=== PATIENT | female | born 1985 | race Native Hawaiian/Other Pacific Islander ===

== ENCOUNTER 2020-02-22 22:14 | Emergency (ER) | payer OTHER ==
[~2020-02-22] VITALS: Ht 170.2 cm; Wt 74.8 kg
[2020-02-22 22:40] LABS: PLATELET COUNT 368 K/uL (152-353)
[2020-02-22 22:51] LABS: POTASSIUM 3.9 mmol/L (3.6-5.2)
[2020-02-23 02:25] VITALS: BP 136/83; TEMP 98.2
== END 2020-02-23 02:25 | disposition home or self-care (01) ==
LOC: ED 22:14
PROVIDERS: Hospitalist
DX: A59.01 Trichomonal vulvovaginitis (principal); K29.60 Other gastritis without bleeding; R11.2 Nausea with vomiting, unspecified; K59.09 Other constipation
CPT/HCPCS: 80053; 80320; 81000; 81025; 82150; 83690; 84702; 85027; 96360; 96365; 96375; 99284; J0696; J1885; J2405; Q9963

== ENCOUNTER 2020-08-22 11:22 | Emergency (ER) | payer OTHER ==
[~2020-08-22] VITALS: Ht 170.2 cm; Wt 65.8 kg
[2020-08-22 11:30] VITALS: TEMP 97.7
[2020-08-22 12:25] VITALS: BP 126/74
== END 2020-08-22 12:27 | disposition home or self-care (01) ==
LOC: ED 11:22
DX: J06.9 Acute upper respiratory infection, unspecified (principal); J40 Bronchitis, not specified as acute or chronic; F17.210 Nicotine dependence, cigarettes, uncomplicated; Z20.822 Contact with and (suspected) exposure to COVID-19
CPT/HCPCS: 87635; 87651; 99283; U0003

== ENCOUNTER 2020-09-04 03:00 | Emergency (ER) | payer OTHER ==
[~2020-09-04] VITALS: Ht 170.2 cm; Wt 65.8 kg
[2020-09-04 03:38] LABS: PLATELET COUNT 422 K/uL (152-353)
[2020-09-04 03:46] LABS: POTASSIUM 3.5 mmol/L (3.6-5.2); SODIUM 140 mmol/L (136-145)
[2020-09-04 05:20] VITALS: BP 136/88; TEMP 97.8
== END 2020-09-04 05:28 | disposition home or self-care (01) ==
LOC: ED 03:00
PROVIDERS: Family Medicine
DX: K29.60 Other gastritis without bleeding (principal); R07.89 Other chest pain
CPT/HCPCS: 36415; 80053; 82150; 82550; 83690; 84484; 85027; 93005; 96374; 99284; J3490